=== PATIENT | female | born 1950 | race Caucasian/White ===

== ENCOUNTER → 2020-11-11 | Outpatient (CLI) | payer OTHER ==
[~2020-11-11] MED LIST: ACET1TAB52 PO; ASPI81TA45 PO; ATOR10TA9 PO; CHOL10003 PO; DILT120C80 PO; PRED5TAB PO; PYRI60TA PO
== END | disposition home or self-care (01) ==
LOC: STAR 13:12
PROVIDERS: ATTEND Obstetrics & Gynecology Female Pelvic Medicine and Reconstructive Surgery
DX: Z01.812 Encounter for preprocedural laboratory examination (principal); Z20.828 Contact with and (suspected) exposure to other viral communicable diseases; N95.0 Postmenopausal bleeding
CPT/HCPCS: 87635; 93005

== ENCOUNTER 2020-11-17 14:23 | Day surgery (SDC) | payer OTHER ==
[~2020-11-17] VITALS: Ht 162.6 cm; Wt 94.0 kg
[2020-11-17] MEDS ORDERED: CHLORHEXIDINE 15 ML UDC MM STA (14:37)
[2020-11-17] MEDS ORDERED: LACTATED RINGERS 1,000 ML IV SCH (15:00)
[2020-11-17] MEDS ORDERED: EPINEPHRINE 1 MG/ML, 1ML ONE (18:12)
[2020-11-17] MEDS ORDERED: BUPIVACAINE/PF 0.25% ONE (18:12)
[2020-11-17] MEDS ORDERED: PYRIDOSTIGMINE 60 MG TABLET PO ONE (18:20)
[2020-11-17] MEDS ORDERED: HYDROCORTISONE 100 MG INJ. ONE (18:22)
[2020-11-17] MEDS ORDERED: ONDANSETRON 2MG/ML, 2ML ONE (18:25)
[2020-11-17] MEDS ORDERED: PROPOFOL 10 MG/ML, 50ML ONE (18:25)
[2020-11-17] MEDS ORDERED: KETOROLAC 30 MG/1 ML IV PRN (19:00)
[2020-11-17] MEDS ORDERED: LABETALOL 5MG/ML, 20ML IV PRN (19:00)
[2020-11-17] MEDS ORDERED: PROMETHAZINE 25 MG/ML, 1ML IV PRN (19:00)
[2020-11-17] MEDS ORDERED: OXYcodone 5 MG/5 ML ORAL.SOL UDC PO PRN (19:00)
[2020-11-17] MEDS ORDERED: MEPERIDINE/PF 25MG/0.5ML IVPush PRN (19:00)
[2020-11-17] MEDS ORDERED: DIAZEPAM 5 MG/ML, 2ML IVPush PRN (19:00)
[2020-11-17] MEDS ORDERED: ALBUTEROL SULFATE 2.5 MG/3 ML NPPB PRN (19:00)
[2020-11-17] MEDS ORDERED: hydrALAzine 20 MG/ML, 1ML IV PRN (19:00)
[2020-11-17] MEDS ORDERED: FENTANYL PF 100 MCG/2ML IV PRN (19:00)
[2020-11-17] MEDS ORDERED: HYDROmorphone 2 MG/ML, 1ML IVPush PRN (19:00)
[2020-11-17] MEDS ORDERED: ACETAMINOPHEN 325 MG TABLET PO PRN (19:00)
[2020-11-17] MEDS ORDERED: ACETAMINOPHEN 650 MG/20.3 ML UDC ONE (19:43)
== END 2020-11-17 20:20 | disposition home or self-care (01) ==
LOC: OR 14:23
PROVIDERS: ATTEND Obstetrics & Gynecology Female Pelvic Medicine and Reconstructive Surgery
DX: N95.0 Postmenopausal bleeding (principal); N84.0 Polyp of corpus uteri; N81.89 Other female genital prolapse; R32 Unspecified urinary incontinence; G70.00 Myasthenia gravis without (acute) exacerbation; I48.0 Paroxysmal atrial fibrillation; E78.5 Hyperlipidemia, unspecified; E66.9 Obesity, unspecified; Z79.82 Long term (current) use of aspirin; Z79.899 Other long term (current) drug therapy; Z98.51 Tubal ligation status
CPT/HCPCS: 58558; 88305; J0171; J1720; J2405; J2704; J7120

== ENCOUNTER → 2020-12-24 | Outpatient (CLI) | payer OTHER | END | disposition home or self-care (01) | LOC: STAR 09:00 | PROVIDERS: ATTEND Obstetrics & Gynecology Female Pelvic Medicine and Reconstructive Surgery | DX: Z20.822 Contact with and (suspected) exposure to COVID-19 (principal); N95.0 Postmenopausal bleeding; R10.2 Pelvic and perineal pain; N81.10 Cystocele, unspecified; N81.6 Rectocele; N39.3 Stress incontinence (female) (male) | CPT/HCPCS: 87635 ==

== ENCOUNTER → 2021-01-06 | Outpatient (CLI) | payer OTHER | END | disposition home or self-care (01) | LOC: STAR 10:24 | PROVIDERS: ATTEND Obstetrics & Gynecology Female Pelvic Medicine and Reconstructive Surgery | DX: Z20.822 Contact with and (suspected) exposure to COVID-19 (principal) | CPT/HCPCS: 87635 ==

== ENCOUNTER → 2021-01-20 | Outpatient (CLI) | payer OTHER | END | disposition home or self-care (01) | LOC: STAR 15:01 | PROVIDERS: ATTEND Obstetrics & Gynecology Female Pelvic Medicine and Reconstructive Surgery | DX: Z01.818 Encounter for other preprocedural examination (principal); R10.2 Pelvic and perineal pain; N81.10 Cystocele, unspecified; N81.6 Rectocele; N95.0 Postmenopausal bleeding; Z20.822 Contact with and (suspected) exposure to COVID-19 | CPT/HCPCS: 93005; U0003 ==

== ENCOUNTER 2021-01-26 10:27 | Day surgery (SDC) | payer OTHER ==
[~2021-01-26] VITALS: Ht 163.8 cm; Wt 93.8 kg
[~2021-01-26 10:27] MED LIST changes: +BUPIVACAINE/PF 0.25% ONE; +EPINEPHRINE 1 MG/ML, 1ML ONE
[2021-01-26 11:07] VITALS: BP 168/96
[2021-01-26] MEDS ORDERED: CHLORHEXIDINE 15 ML UDC ONE (11:13)
[2021-01-26] MEDS ORDERED: CHLORHEXIDINE 15 ML UDC MM ONE (11:30)
[2021-01-26] MEDS ORDERED: LACTATED RINGERS 1,000 ML IV SCH (11:30)
[2021-01-26] MEDS ORDERED: NEOMY/POLYMYXIN B GU IRR. 1 ML ONE (12:37)
[2021-01-26] MEDS ORDERED: ACETAMINOPHEN 325 MG TABLET PO PRN ×2 (13:00→14:30)
[2021-01-26] MEDS ORDERED: KETOROLAC 30 MG/1 ML IV PRN (13:00)
[2021-01-26] MEDS ORDERED: ALBUTEROL SULFATE 2.5 MG/3 ML NPPB PRN (13:00)
[2021-01-26] MEDS ORDERED: LABETALOL 5MG/ML, 20ML IV PRN ×2 (13:00→14:30)
[2021-01-26] MEDS ORDERED: hydrALAzine 20 MG/ML, 1ML IV PRN ×2 (13:00→14:30)
[2021-01-26] MEDS ORDERED: HYDROmorphone 2 MG/ML, 1ML IVPush PRN (13:00)
[2021-01-26] MEDS ORDERED: DIAZEPAM 5 MG/ML, 2ML IVPush PRN (13:00)
[2021-01-26] MEDS ORDERED: FENTANYL PF 100 MCG/2ML IV PRN (13:00)
[2021-01-26] MEDS ORDERED: EPHEDRINE 50 MG/ML, 1ML ONE (13:26)
[2021-01-26] MEDS ORDERED: ONDANSETRON 2MG/ML, 2ML ONE (13:26)
[2021-01-26] MEDS ORDERED: CEFAZOLIN 1,000 MG ONE (13:26)
[2021-01-26] MEDS ORDERED: ROCURONIUM 10 MG/ML,10ML ONE (13:26)
[2021-01-26] MEDS ORDERED: SUGAMMADEX 200 MG/2 ML IVPush ONE (13:26)
[2021-01-26] MEDS ORDERED: PROPOFOL 10 MG/ML, 20ML ONE (13:26)
[2021-01-26] MEDS ORDERED: OXYcodone 5 MG/5 ML ORAL.SOL UDC PO PRN (14:30)
[2021-01-26] MEDS ORDERED: KETOROLAC 30 MG/1 ML IVPush PRN (14:30)
[2021-01-26] MEDS ORDERED: ONDANSETRON 2MG/ML, 2ML IVPush PRN (14:30)
[2021-01-26] MEDS ORDERED: MEPERIDINE/PF 25MG/0.5ML IVPush PRN (14:30)
[2021-01-26] MEDS ORDERED: LORazepam 2 MG/ML, 1ML IVPush PRN (14:30)
[2021-01-26] MEDS ORDERED: HYDROmorphone 1 MG/ML, 1ML INJ IVPush PRN (14:30)
[2021-01-26] MEDS ORDERED: PROMETHAZINE 12.5 MG SUPP PR PRN (14:30)
[2021-01-26] MEDS ORDERED: KETOROLAC 30 MG/1 ML ONE (15:22)
[2021-01-26] MEDS ORDERED: FENTANYL PF 100 MCG/2ML ONE (15:23)
[2021-01-26] MEDS ORDERED: OXYcodone 5 MG/5 ML ORAL.SOL UDC ONE ×2 (15:23→15:49)
[2021-01-26] MEDS: FENTANYL PF 100 MCG/2ML IV PRN ×2 (15:24→15:45)
[2021-01-26] MEDS: OXYcodone 5 MG/5 ML ORAL.SOL UDC PO PRN ×2 (15:35→15:50)
[2021-01-26] MEDS ORDERED: ONDANSETRON ODT 4 MG PO ONE (18:30)
[2021-01-26] MEDS ORDERED: ONDANSETRON ODT 4 MG ONE (18:38)
== END 2021-01-26 18:50 | disposition home or self-care (01) ==
LOC: OUT 10:27
PROVIDERS: ATTEND Obstetrics & Gynecology Female Pelvic Medicine and Reconstructive Surgery
DX: N95.0 Postmenopausal bleeding (principal); N81.89 Other female genital prolapse; N39.46 Mixed incontinence; N81.11 Cystocele, midline; N81.6 Rectocele; N81.5 Vaginal enterocele; N84.0 Polyp of corpus uteri; G70.00 Myasthenia gravis without (acute) exacerbation; I10 Essential (primary) hypertension; E78.5 Hyperlipidemia, unspecified; Z79.82 Long term (current) use of aspirin; Z79.899 Other long term (current) drug therapy; Z98.51 Tubal ligation status
CPT/HCPCS: 57265; 57282; 57288; 58552; 88307; C1771; J0171; J0690; J1885; J2250; J2405; J2704; J3010; J7120; Q0162